=== PATIENT | male | born 1955 | race Asian ===

== ENCOUNTER 2020-05-13 07:44 | Emergency (ER) | payer OTHER ==
[~2020-05-13] VITALS: Ht 152.4 cm; Wt 60.3 kg
[2020-05-13 08:08] VITALS: Ht 152.4 cm; Wt 60.3 kg
[2020-05-13 10:20] LABS: BASOPHIL % 0.2 % (0-2); PLATELET COUNT 126 x10^3mcL (130-400); RED CELL DISTRIBUTION WIDTH 15.9 % (11.5-14.5)
[2020-05-13 10:39] LABS: CHLORIDE SERUM 101 mmol/L (98-107); POTASSIUM SERUM 3.8 mmol/L (3.5-5.1); SODIUM SERUM 138 mmol/L (136-145)
[2020-05-13 10:40] LABS: ALBUMIN 4.8 g/dL (3.4-5.0); ALKALINE PHOSPHATASE 84 U/L (46-116); ALT/SGPT 21 U/L (16-63); AST/SGOT 28 U/L (15-37); BILIRUBIN TOTAL 0.79 mg/dL (0.20-1.00); CALCIUM 9.9 mg/dL (8.5-10.1); CARBON DIOXIDE 26.8 mmol/L (21-32); CREATININE SERUM 1.1 mg/dL (0.7-1.3); GFR1 > 60 mL/min; GLUCOSE SERUM 98 mg/dL (74-106); TOTAL PROTEIN, SERUM 8.6 g/dL (6.4-8.2)
[2020-05-13 11:52] VITALS: BP 140/82
== END 2020-05-13 11:52 | disposition home or self-care (01) ==
LOC: ED 07:44
PROVIDERS: Emergency Medicine
DX: R06.02 Shortness of breath (principal); R53.1 Weakness; M79.10 Myalgia, unspecified site; R06.00 Dyspnea, unspecified; Z20.828 Contact with and (suspected) exposure to other viral communicable diseases
CPT/HCPCS: 83880; 87804; Q0092; U0003-CS

== ENCOUNTER 2020-05-13 23:14 | Emergency (ER) | payer OTHER ==
[~2020-05-13] VITALS: Ht 172.7 cm; Wt 59.5 kg
[2020-05-13 23:25] VITALS: BP 131/86; Ht 172.7 cm; Wt 59.5 kg
[2020-05-14 01:11] LABS: microscopic required? NO
[2020-05-14 01:31] LABS: urine erythrocyte NEGATIVE (NEGATIVE)
== END 2020-05-14 01:39 | disposition home or self-care (01) ==
LOC: ED 23:14
PROVIDERS: Emergency Medicine
DX: R33.9 Retention of urine, unspecified (principal); E78.00 Pure hypercholesterolemia, unspecified